=== PATIENT | female | born 1980 | race Caucasian/White ===

== ENCOUNTER 2021-05-04 13:46 | Emergency (ER) | payer SELFPAY ==
[~2021-05-04] VITALS: Ht 165.1 cm; Wt 95.0 kg
[~2021-05-04 13:46] MED LIST: ASPI-1140 PO; AZI25OT PO; AZIT250T PO; BAC10T PO; CYCL-1 PO; PSEU120T55 PO; TRAM50TA2 PO
[2021-05-04 13:57] VITALS: BP 152/89
== END 2021-05-04 17:22 | disposition home or self-care (01) ==
LOC: ER 13:47
DX: S80.11XA Contusion of right lower leg, initial encounter (principal); G43.909 Migraine, unspecified, not intractable, without status migrainosus; J45.909 Unspecified asthma, uncomplicated; Z98.890 Other specified postprocedural states; Z88.0 Allergy status to penicillin; Z79.2 Long term (current) use of antibiotics; X58.XXXA Exposure to other specified factors, initial encounter; Y93.89 Activity, other specified; Y92.89 Other specified places as the place of occurrence of the external cause; Y99.9 Unspecified external cause status
CPT/HCPCS: 93971; 99284